=== PATIENT | female | born 1955 | race Caucasian/White ===

== ENCOUNTER 2018-12-07 14:33 | Emergency (ER) | payer MEDICAID ==
--- NOTE | 2018-12-07 14:51 | ED Physician Documentation ---
PD HPI HEADACHE - Stated complaint Stated Complaint: REY/INGROWN TOENAILS - Chief complaint Chief Complaint: Neuro - History obtained from History obtained from: Patient - History of Present Illness Timing - onset: Today (onset of migraine headache today/this morning and did not have any of her usual Rx Imitrex and Compazine, that she would normally take.), How many days ago (few) Timing - onset during: Rest Timing - duration: Days (has had redness and swelling of right great toe and 4th toe for past few days. Having more pain today. Some drainage from corner.) Timing - details: Gradual onset Worst headache ever?: No: Worst headache ever? (feeling similar to usual migraines) Location: Right Quality: Throbbing, Aching Associated symptoms: Nausea. No: Fever, Stiff neck, Vomiting, Weakness, Numbness, Vision changes Worsened by: Light Contributing factors: No: Recent illness, Trauma Similar symptoms before: Diagnosis (migraine headaches) Review of Systems Constitutional: denies: Fever, Myalgias Nose: denies: Rhinorrhea / runny nose, Congestion Throat: denies: Sore throat Respiratory: denies: Cough GI: reports: Nausea. denies: Abdominal Pain, Vomiting, Diarrhea Musculoskeletal: reports: Other PD PAST MEDICAL HISTORY - Past Medical History Respiratory: Asthma, COPD - Past Surgical History Past Surgical History: Yes /TEAM ASSISTANT: Oophrectomy - Present Medications Home Medications: Ambulatory Orders Medication Instructions Recorded Confirmed Amoxicillin 500 mg PO TID #30 tablet 04/06/15 Atorvastatin [Lipitor] 20 mg PO DAILY 04/06/15 04/06/15 Bupropion HCl [Bupropion Xl] 150 mg PO DAILY 04/06/15 04/06/15 Citalopram [CeleXA] 20 mg PO DAILY 04/06/15 04/06/15 Gabapentin 100 mg PO DAILY 04/06/15 04/06/15 HYDROcod/ACETAM 5/325 [[place] 5/325] 1 - 2 ea PO Q6H PRN #15 tablet 04/06/15 Omeprazole [PriLOSEC] 20 mg PO DAILY 04/06/15 04/06/15 SUMAtriptan [Imitrex] 50 mg PO DAILY 04/06/15 04/06/15 SUMAtriptan [Imitrex] 50 mg PO DAILY #10 tablet 04/06/15 predniSONE [Deltasone] 60 mg PO DAILY 5 Days tablet 04/06/15 traZODone [Desyrel] 100 mg PO DAILY 04/06/15 04/06/15 Doxycycline Hyclate 100 mg PO BID #14 capsule 12/07/18 Mupirocin 1 applic TP TID #15 g 12/07/18 Naproxen 500 mg PO BID #20 tablet 12/07/18 Oxycodone HCl/Acetaminophen 1 each PO Q6H PRN #20 tablet 12/07/18 [Percocet 5-325 mg Tablet] Prochlorperazine [Compazine] 5 mg PO Q6H PRN #10 tablet 12/07/18 SUMAtriptan succinate [Sumatriptan 100 mg PO ONCE PRN #10 tablet 12/07/18 Succinate] - Allergies Allergies/Adverse Reactions: Allergies Allergy/AdvReac Type Severity Reaction Status Date / Time No Known Drug Allergies Allergy Verified 12/07/18 14:45 - Social History Does the pt smoke?: No Smoking Status: Never smoker Does the pt drink ETOH?: No Does the pt have substance abuse?: No - Immunizations Immunizations are current?: Yes PD ED PE NORMAL - Vitals Vital signs reviewed: Yes - General General: Alert and oriented X 3, Well developed/nourished, Other (appears uncomfortable but attentive and interacts well. ) - HEENT HEENT: PERRL (light sensitive), EOMI - Neck Neck: Supple, no meningeal sign, No adenopathy - Cardiac Cardiac: RRR, No murmur - Respiratory Respiratory: Clear bilaterally - Extremities Extremities: Other (right 4th toe with redness at end and around nail, with ingrown nail lateral corner. Great toe with moderate redness and some blistering/pustule dorsal proximal base of the nail. Fluctuant area at lateral corner of nail, and there is ingrown nail lateral corner. Small amount of purulent drainage from small pustule there.) - Neuro Neuro: Alert and oriented X 3, winter intern 2-12 intact, No motor deficit, No sensory de ficit, Normal speech Results - Vitals Vitals: Vital Signs - 24 hr 12/07/18 12/07/18 12/07/18 14:43 14:52 15:04 Temperature 36.5 C 36.0 C L Heart Rate 72 73 65 Respiratory 16 16 20 Rate Blood Pressure 142/83 H 108/66 103/75 O2 Saturation 97 100 97 12/07/18 12/07/18 15:34 16:25 Temperature 36.1 C L Heart Rate 67 76 Respiratory 16 20 Rate Blood Pressure 129/86 H 158/93 H O2 Saturation 98 2 L Oxygen O2 Source Nasal cannula PD MEDICAL DECISION MAKING - ED course Complexity details: considered differential (seems like migraine headache, and is feeling typical for her. No red flags for it. Has also ingrown toenail with paronychia. I trimmed the nail back from the corner so not ingrown, and small amount of pus came out. ), d/w patient Departure - Departure Disposition: 01 Home, Self Care Clinical Impression: Ingrown toenail of right foot Migraine headache Qualifiers: Migraine type: without aura Status migrainosus presence: without status migra inosus Intractability: not intractable Qualified Code(s): G43.009 - Migraine without aura, not intractable, without status migrainosus Condition: Stable Record reviewed to determine appropriate education?: Yes Instructions: ED Headache Migraine, ED Fingernail Infec Prescriptions: Doxycycline Hyclate 100 mg PO BID #14 capsule Mupirocin 1 applic TP TID #15 g Naproxen 500 mg PO BID #20 tablet Oxycodone HCl/Acetaminophen [Percocet 5-325 mg Tablet] 1 each PO Q6H PRN #20 tablet PRN Reason: pain Prochlorperazine [Compazine] 5 mg PO Q6H PRN #10 tablet PRN Reason: Nausea / Vomiting SUMAtriptan succinate [Sumatriptan Succinate] 100 mg PO ONCE PRN #10 tablet PRN Reason: Migraine Comments: For the toe infection, soak the foot in warm water and try to promote drainage from the infected area. Apply mupirocin antibiotic topically 3 times daily to the area. Doxycycline oral antibiotic twice daily for a week for the infection of the soft tissue. For your migraines, continue sumatriptan combined with Compazine and naproxen as needed for episodes of migraine. Use naproxen twice daily for the next several days and add Tylenol or oxycodone as needed for pain of the toe headache generally. Recheck if not improving well over the next several days to week. Discharge Date/Time: 12/07/18 16:32
[2018-12-07] MEDS ORDERED: KETOROLAC 30 MG/ML VIAL IM STA (15:03)
[2018-12-07] MEDS ORDERED: PROCHLORPERAZINE 5 MG TABLET PO STA (15:03)
[2018-12-07] MEDS ORDERED: SUMAtriptan 6 MG/0.5 ML VIAL SUBQ STA (15:03)
[2018-12-07] MEDS ORDERED: LIDOCAINE-EPINEPH-TETRACAINE 3 ML SYRINGE TOP STA (15:03)
[2018-12-07] MEDS ORDERED: DOXYCYCLINE 100 MG TABLET PO STA (16:03)
[2018-12-07] MEDS ORDERED: HYDROmorphone 2 MG/ML VIAL IM STA (16:03)
[2018-12-07 16:26] VITALS: BP 158/93
== END 2018-12-07 16:32 | disposition home or self-care (01) ==
LOC: ED 14:33
DX: G43.009 Migraine without aura, not intractable, without status migrainosus (principal); L60.0 Ingrowing nail; L03.031 Cellulitis of right toe
CPT/HCPCS: 99284; 99285; A9270; J1170